=== PATIENT | male | born 1950 | race Caucasian/White ===

== ENCOUNTER 2016-11-01 09:54 | Inpatient (IN) | payer MEDICARE, OTHER ==
[~2016-11-01] VITALS: Ht 185.4 cm; Wt 102.3 kg
[~2016-11-01 09:54] MED LIST: LEVO25TA9 PO; TAMS0.4C32 PO
[2016-11-01] MEDS ORDERED: GLYC10.7 IH (10:16)
[2016-11-01] MEDS ORDERED: BUDE0.252 NEB (10:16)
[2016-11-01] MEDS ORDERED: ALBU0.424 IH (10:16)
[2016-11-01] MEDS ORDERED: MONT10TA21 PO (10:16)
[2016-11-01] MEDS ORDERED: BARIUM SULFATE 0.1% SUSPENSION 450 ML BOTTLE PO ONE (10:30)
[2016-11-01] MEDS ORDERED: SODIUM CHLORIDE 0.9% 1,000 ML IV ONE ×2 (10:30→11:45)
[2016-11-01] MEDS ORDERED: HYDROmorphone 2 MG/ML SYRINGE IVP ONE ×3 (10:30→23:42)
[2016-11-01] MEDS ORDERED: ONDANSETRON HCL 4 MG/2 ML VIAL IVP ONE ×2 (10:30→23:42)
[2016-11-01] MEDS ORDERED: HEPATITIS A VACCINE, INACTI [ADULT] 1,440 UNITS/ML VIAL IM ONE (10:45)
[2016-11-01 10:55] LABS: BASOPHILS # (AUTO) 0.06 K/uL (0.00-0.20); BASOPHILS % (AUTO) 0.4 % (0.0-2.0); EOSINOPHILS # (AUTO) 0.04 K/uL (0.00-0.70); EOSINOPHILS % (AUTO) 0.28 % (1.0-6.0); HEMATOCRIT 44.8 % (41-53); HEMOGLOBIN 15.2 g/dL (13.5-17.5); LYMPHOCYTES # (AUTO) 0.6 K/uL (1.0-4.8); LYMPHOCYTES % (AUTO) 4.9 % (22.0-44.0); MEAN CORPUSCULAR HEMOGLOBIN 31.8 pg (26.0-34.0); MEAN CORPUSCULAR VOLUME 93 fL (80-100); MONOCYTES # (AUTO) 0.7 K/uL (0.1-1.0); MONOCYTES % (AUTO) 5.5 % (2.0-9.0); NEUTROPHILS # (AUTO) 11.4 K/uL (1.8-7.7); PLATELET COUNT (AUTO) 242 K/uL (150-450); RED BLOOD CELL COUNT(AUTO) 4.79 MIL/uL (4.50-5.90); RED CELL DISTRIBUTION WIDTH 13.1 % (11.5-14.5); WHITE BLOOD COUNT (AUTO) 12.8 K/uL (4.5-11.0)
[2016-11-01 10:57] LABS: NEUTROPHILS % (AUTO) 88.9 % (40.0-70.0); RBC MORPHOLOGY COMMENT NORMAL RBC MORPH
[2016-11-01 11:01] LABS: ANION GAP 10 mmol/L (8-16); CALCIUM, TOTAL 9.5 mg/dL (8.8-10.5); CARBON DIOXIDE 28 mmol/L (22-29); CHLORIDE 101 mmol/L (98-107); CREATININE 1.16 mg/dL (0.60-1.30); GLOMERULAR FILTR. RATE CALC > 60 mL/min (>60); POTASSIUM 4.2 mmol/L (3.5-5.1); SODIUM SERUM 139 mmol/L (136-145); UREA NITROGEN, BLOOD 15 mg/dL (7-18)
[2016-11-01 11:03] LABS: APPEARANCE,URINE CLEAR (CLEAR); GLUCOSE, URINE (UA) NEGATIVE (NEGATIVE); KETONES,URINE 15 mg/dL (NEGATIVE); LEUKOCYTE ESTERASE ,URINE TRACE (NEGATIVE); OCCULT BLOOD,URINE NEGATIVE (NEGATIVE); PROTEIN,URINE POS 1+ (NEGATIVE)
[2016-11-01 11:07] LABS: ALANINE AMINOTRANSFERASE 34 U/L (12-78); ALBUMIN 3.6 g/dL (3.4-5.0); ASPARTATE AMINOTRANSFERASE 21 U/L (15-37); BILIRUBIN,TOTAL 0.9 mg/dL (0.1-1.0); TOTAL PROTEIN, SERUM 7.1 g/dL (6.4-8.2)
[2016-11-01 11:11] LABS: ADD UA MICROSCOPIC YES
[2016-11-01 11:15] LABS: RBC,URINE 0-2 /HPF (0-2); SQUAMOUS EPITHELIAL CELL,UR Few /LPF (None Seen); WBC,URINE 0-2 /HPF (0-5)
[2016-11-01] MEDS ORDERED: IOVERSOL 350 MG/ML 150 ML VIAL ONE (12:16)
[2016-11-01] MEDS ORDERED: SODIUM CHLORIDE 0.9% 100 ML ONE (12:16)
[2016-11-01] MEDS ORDERED: IPRATROPIUM BROMIDE 0.5 MG/2.5 ML NEB SOLUTION NEB ONE (12:45)
[2016-11-01] MEDS ORDERED: ALBUTEROL SULFATE 2.5 MG/0.5 ML NEB SOLUTION NEB ONE (12:45)
[2016-11-01] MEDS ORDERED: 0.9% SODIUM CHLORIDE 5 ML NEB SOLUTION NEB ONE ×2 (12:56→22:07)
[2016-11-01] MEDS ORDERED: 0.9% SODIUM CHLORIDE 10 ML SYRINGE IVP PRN (13:30)
[2016-11-01] MEDS ORDERED: HYDROmorphone 2 MG/ML SYRINGE IVP PRN ×5 (13:30→16:00)
[2016-11-01] MEDS ORDERED: ONDANSETRON HCL 4 MG/2 ML VIAL IVP PRN ×2 (13:30→13:45)
[2016-11-01] MEDS ORDERED: PIPERACILLIN/TAZO 3.375 GM/D5W 50 ML IV SCH ×2 (13:30→14:00)
[2016-11-01] MEDS ORDERED: BISACODYL 10 MG RECTAL RECTAL SUPPOSITORY PR PRN (13:45)
[2016-11-01] MEDS ORDERED: MAGNESIUM HYDROXIDE SUSPENSION 30 ML UDCUP PO PRN (13:45)
[2016-11-01] MEDS ORDERED: ACETAMINOPHEN 325 MG TABLET PO PRN (13:45)
[2016-11-01] MEDS: HEPARIN SODIUM,PORCINE 5,000 UNITS/ML VIAL SQ SCH ×2 (14:01→21:30)
[2016-11-01] MEDS ORDERED: RINGERS SOLUTION,LACTATED 0 ML IV ONE (14:32)
[2016-11-01] MEDS ORDERED: BUPIVACAINE 0.25%/EPI 1:200,000/PF 10 ML VIAL ONE (14:42)
[2016-11-01] MEDS ORDERED: RINGERS SOLUTION,LACTATED 1,000 ML IV ONE (14:43)
[2016-11-01] MEDS ORDERED: GUM MASTIC/STORAX/MSAL/ALCOHOL LIQUID 0.67 ML VIAL TP ONE (14:43)
[2016-11-01] MEDS ORDERED: SODIUM CHLORIDE 0.9% IRRIG BAG 1,000 ML IRRIG ONE (15:26)
[2016-11-01] MEDS ORDERED: CefoTEtan DISOD 2 GM/DEXTROSE 50 ML IV ONE (15:55)
[2016-11-01] MEDS ORDERED: ACETAMINOPHEN 1000 MG/ISO-OSM 100 ML IV ONE (15:56)
[2016-11-01] MEDS ORDERED: FentaNYL CITRATE-PF 100 MCG/2 ML VIAL IVP PRN (16:00)
[2016-11-01] MEDS ORDERED: MEPERIDINE-PF 25 MG/ML SYRINGE IVP PRN (16:00)
[2016-11-01] MEDS ORDERED: SODIUM CL IRRIG SOLN BAG 3,000 ML IRRIG ONE (16:43)
[2016-11-01] MEDS ORDERED: SODIUM CHLORIDE 0.9% 10 ML ONE (17:52)
[2016-11-01] MEDS ORDERED: HYDROmorphone 2 MG/ML SYRINGE ONE (18:09)
[2016-11-01] MEDS ORDERED: DiphenhydrAMINE HCL 25 MG CAPSULE PO PRN (18:45)
[2016-11-01] MEDS ORDERED: ONDANSETRON HCL 4 MG/2 ML VIAL IM PRN (18:45)
[2016-11-01] MEDS: IPRATROPIUM BROMIDE 0.5 MG/2.5 ML NEB SOLUTION NEB PRN ×2 (18:56→22:17)
[2016-11-01] MEDS: ALBUTEROL SULFATE 2.5 MG/0.5 ML NEB SOLUTION NEB PRN ×2 (18:56→22:18)
[2016-11-01] MEDS ORDERED: BACITRACIN 50,000 UNITS/VIAL ONE (19:26)
[2016-11-01 20:15] VITALS: BP 132/78
[2016-11-01] MEDS: FAMOTIDINE 20 MG TABLET PO SCH (21:30)
[2016-11-01] MEDS: OXYGEN THERAPY IH SCH (21:40)
[2016-11-01] MEDS: PIPERACILLIN SODIUM/TAZOBACTAM 4.5 GM in DEXTROSE 5%-WATER 100 ML IV SCH (21:41)
[2016-11-01] MEDS: ACETAMINOPHEN 1000 MG/ISO-OSM 100 ML IV SCH (23:01)
[2016-11-01] MEDS: HYDROmorphone 2 MG/ML SYRINGE IVP PRN (23:05)
[2016-11-01] MEDS: ZOLPIDEM TARTRATE 5 MG TABLET PO PRN (23:07)
[2016-11-01 23:09] VITALS: BP 128/66
[2016-11-01] MEDS ORDERED: NEOSTIGMINE METHYLSULFATE 1 MG/ML 10 ML VIAL IVP ONE (23:42)
[2016-11-01] MEDS ORDERED: PROPOFOL 1% 20 ML VIAL IVP ONE (23:42)
[2016-11-01] MEDS ORDERED: SUCCINYLCHOLINE CHLORIDE 20 MG/ML 10 ML VIAL IVP ONE (23:42)
[2016-11-01] MEDS ORDERED: MIDAZOLAM HCL 2 MG/2 ML VIAL IVP ONE (23:42)
[2016-11-01] MEDS ORDERED: LIDOCAINE HCL/PF 2% 5 ML VIAL IM ONE (23:42)
[2016-11-01] MEDS ORDERED: ROCURONIUM BROMIDE 10 MG/ML 5 ML VIAL IVP ONE (23:42)
[2016-11-01] MEDS ORDERED: KETOROLAC TROMETHAMINE 60 MG/2 ML VIAL IM ONE (23:42)
[2016-11-01] MEDS ORDERED: GLYCOPYRROLATE 0.2 MG/ML VIAL IM ONE (23:42)
[2016-11-01] MEDS ORDERED: FentaNYL CITRATE-PF 100 MCG/2 ML VIAL IVP ONE (23:42)
[2016-11-01] MEDS ORDERED: ALBUTEROL SULFATE HFA 90 MCG/PUFF 8 GM INHALER IH ONE (23:42)
[2016-11-01] MEDS ORDERED: DEXAMETHASONE SOD PHOS 4 MG/ML VIAL IVP ONE (23:42)
[2016-11-02] MEDS: PIPERACILLIN SODIUM/TAZOBACTAM 4.5 GM in DEXTROSE 5%-WATER 100 ML IV SCH ×3 (04:31→20:19)
[2016-11-02] MEDS: IPRATROPIUM BROMIDE 0.5 MG/2.5 ML NEB SOLUTION NEB PRN ×2 (05:28→10:51)
[2016-11-02] MEDS: ALBUTEROL SULFATE 2.5 MG/0.5 ML NEB SOLUTION NEB PRN ×3 (05:28→20:58)
[2016-11-02 05:29] VITALS: BP 132/72
[2016-11-02] MEDS: ACETAMINOPHEN 1000 MG/ISO-OSM 100 ML IV SCH ×3 (05:34→16:24)
[2016-11-02 06:38] LABS: BASOPHILS % (AUTO) 0.1 % (0.0-2.0); EOSINOPHILS % (AUTO) 0 % (1.0-6.0); HEMATOCRIT 40.9 % (41-53); HEMOGLOBIN 14.1 g/dL (13.5-17.5); LYMPHOCYTES # (AUTO) 0.6 K/uL (1.0-4.8); MEAN CORPUSCULAR HGB CONC 34.5 G/dL (31.0-37.0); MEAN CORPUSCULAR VOLUME 93 fL (80-100); MONOCYTES # (AUTO) 0.8 K/uL (0.1-1.0); MONOCYTES % (AUTO) 6.8 % (2.0-9.0); PLATELET COUNT (AUTO) 267 K/uL (150-450); RED CELL DISTRIBUTION WIDTH 13.4 % (11.5-14.5); WHITE BLOOD COUNT (AUTO) 12.5 K/uL (4.5-11.0)
[2016-11-02 06:41] LABS: NEUTROPHILS % (AUTO) 88.1 % (40.0-70.0)
[2016-11-02 07:08] LABS: CALCIUM, TOTAL 9.1 mg/dL (8.8-10.5); CHOL/HDL RATIO 4.2 (4.2-7.3); CREATININE 1.5 mg/dL (0.60-1.30); HEMOGLOBIN A1C 5.4 % (4.5-6.2); MAGNESIUM 2.1 mg/dL (1.80-2.40); POTASSIUM 4.6 mmol/L (3.5-5.1); THYROID STIMULATING HORMONE 0.97 uIU/mL (0.36-3.74)
[2016-11-02 07:26] VITALS: BP 109/57
[2016-11-02] MEDS: HYDROmorphone 2 MG/ML SYRINGE IVP PRN ×4 (07:56→20:19)
[2016-11-02] MEDS: LEVOTHYROXINE SODIUM 50 MCG TABLET PO SCH (07:56)
[2016-11-02] MEDS: KETOROLAC TROMETHAMINE 30 MG/ML VIAL IVP SCH ×2 (08:00)
[2016-11-02] MEDS: OXYGEN THERAPY IH SCH ×2 (08:00→20:00)
[2016-11-02] MEDS: MONTELUKAST SODIUM 10 MG TABLET PO SCH (08:12)
[2016-11-02] MEDS: HEPARIN SODIUM,PORCINE 5,000 UNITS/ML VIAL SQ SCH ×2 (08:13→08:19)
[2016-11-02] MEDS: PANTOPRAZOLE SODIUM 40 MG/VIAL IVP SCH (08:13)
[2016-11-02] MEDS: FAMOTIDINE 20 MG TABLET PO SCH ×2 (08:20→20:20)
[2016-11-02] MEDS ORDERED: 0.9% SODIUM CHLORIDE 5 ML NEB SOLUTION NEB ONE (10:51)
[2016-11-02] MEDS ORDERED: SODIUM CHLORIDE 0.9% 250 ML IV ONE ×2 (11:04→21:09)
[2016-11-02] MEDS: SIMETHICONE 80 MG CHEWABLE TABLET CHEW SCH ×3 (11:42→20:20)
[2016-11-02] MEDS: MINERAL OIL 30 ML UDCUP PO SCH ×2 (11:42→20:20)
[2016-11-02 11:48] VITALS: BP 111/58
[2016-11-02] MEDS: IBUPROFEN 200 MG TABLET PO SCH ×2 (12:28→17:41)
[2016-11-02 15:40] VITALS: BP 119/74
[2016-11-02 19:27] VITALS: BP 132/71
[2016-11-02] MEDS: BUDESONIDE 0.5 MG/2 ML NEB SOLUTION NEB SCH (20:58)
[2016-11-02] MEDS: ZOLPIDEM TARTRATE 5 MG TABLET PO PRN (22:11)
[2016-11-02 23:30] VITALS: BP 94/56
[2016-11-03] MEDS: HYDROmorphone 2 MG/ML SYRINGE IVP PRN ×6 (04:58→23:38)
[2016-11-03 05:01] VITALS: BP 130/84
[2016-11-03] MEDS: PIPERACILLIN SODIUM/TAZOBACTAM 4.5 GM in DEXTROSE 5%-WATER 100 ML IV SCH ×3 (05:02→20:09)
[2016-11-03] MEDS: IPRATROPIUM BROMIDE 0.5 MG/2.5 ML NEB SOLUTION NEB PRN ×3 (06:24→19:13)
[2016-11-03] MEDS: ALBUTEROL SULFATE 2.5 MG/0.5 ML NEB SOLUTION NEB PRN ×3 (06:24→19:13)
[2016-11-03] MEDS: LEVOTHYROXINE SODIUM 50 MCG TABLET PO SCH (06:28)
[2016-11-03] MEDS: IBUPROFEN 200 MG TABLET PO SCH ×5 (06:28→23:57)
[2016-11-03] MEDS: SIMETHICONE 80 MG CHEWABLE TABLET CHEW SCH ×4 (06:28→20:12)
[2016-11-03 07:03] LABS: BASOPHILS % (AUTO) 0.2 % (0.0-2.0); EOSINOPHILS % (AUTO) 0.4 % (1.0-6.0); HEMATOCRIT 36.9 % (41-53); HEMOGLOBIN 12.7 g/dL (13.5-17.5); LYMPHOCYTES # (AUTO) 0.7 K/uL (1.0-4.8); MEAN CORPUSCULAR HEMOGLOBIN 31.7 pg (26.0-34.0); MEAN CORPUSCULAR HGB CONC 34.5 G/dL (31.0-37.0); MEAN CORPUSCULAR VOLUME 92 fL (80-100); MONOCYTES # (AUTO) 0.6 K/uL (0.1-1.0); MONOCYTES % (AUTO) 9.7 % (2.0-9.0); NEUTROPHILS # (AUTO) 5.3 K/uL (1.8-7.7); NEUTROPHILS % (AUTO) 79.7 % (40.0-70.0); PLATELET COUNT (AUTO) 234 K/uL (150-450); RED BLOOD CELL COUNT(AUTO) 4.02 MIL/uL (4.50-5.90); RED CELL DISTRIBUTION WIDTH 13.4 % (11.5-14.5); WHITE BLOOD COUNT (AUTO) 6.6 K/uL (4.5-11.0)
[2016-11-03 07:15] LABS: ANION GAP 7 mmol/L (8-16); CALCIUM, TOTAL 8.7 mg/dL (8.8-10.5); CARBON DIOXIDE 27 mmol/L (22-29); CHLORIDE 103 mmol/L (98-107); CREATININE 1.17 mg/dL (0.60-1.30); GLOMERULAR FILTR. RATE CALC > 60 mL/min (>60); POTASSIUM 3.6 mmol/L (3.5-5.1); SODIUM SERUM 137 mmol/L (136-145); UREA NITROGEN, BLOOD 10 mg/dL (7-18)
[2016-11-03 07:48] VITALS: BP 145/72
[2016-11-03] MEDS: PANTOPRAZOLE SODIUM 40 MG/VIAL IVP SCH (07:51)
[2016-11-03] MEDS: FAMOTIDINE 20 MG TABLET PO SCH ×2 (07:51→20:06)
[2016-11-03] MEDS: MINERAL OIL 30 ML UDCUP PO SCH ×2 (07:51→20:12)
[2016-11-03] MEDS: MONTELUKAST SODIUM 10 MG TABLET PO SCH (07:51)
[2016-11-03] MEDS: OXYGEN THERAPY IH SCH (08:00)
[2016-11-03] MEDS: BUDESONIDE 0.5 MG/2 ML NEB SOLUTION NEB SCH ×2 (08:28→20:57)
[2016-11-03 11:56] VITALS: BP 150/87
[2016-11-03] MEDS ORDERED: MAGNESIUM CITRATE 300 ML ORAL SOLUTION PO PRN (13:00)
[2016-11-03 15:10] VITALS: BP 126/73
[2016-11-03 19:46] VITALS: BP 143/73
[2016-11-03 23:16] VITALS: BP 140/75
[2016-11-03] MEDS: ZOLPIDEM TARTRATE 5 MG TABLET PO PRN (23:36)
[2016-11-04 04:11] VITALS: BP 142/78
[2016-11-04] MEDS: HYDROmorphone 2 MG/ML SYRINGE IVP PRN ×3 (04:14→22:59)
[2016-11-04] MEDS: PIPERACILLIN SODIUM/TAZOBACTAM 4.5 GM in DEXTROSE 5%-WATER 100 ML IV SCH ×3 (04:17→20:08)
[2016-11-04] MEDS: IPRATROPIUM BROMIDE 0.5 MG/2.5 ML NEB SOLUTION NEB PRN ×4 (05:56→20:44)
[2016-11-04] MEDS: ALBUTEROL SULFATE 2.5 MG/0.5 ML NEB SOLUTION NEB PRN ×4 (05:56→20:44)
[2016-11-04] MEDS: SIMETHICONE 80 MG CHEWABLE TABLET CHEW SCH ×4 (07:11→20:10)
[2016-11-04] MEDS: IBUPROFEN 200 MG TABLET PO SCH ×4 (07:12→23:02)
[2016-11-04] MEDS: LEVOTHYROXINE SODIUM 50 MCG TABLET PO SCH (07:12)
[2016-11-04 07:32] VITALS: BP 138/80
[2016-11-04] MEDS: OXYGEN THERAPY IH SCH ×2 (08:00→20:10)
[2016-11-04] MEDS: MONTELUKAST SODIUM 10 MG TABLET PO SCH (08:13)
[2016-11-04] MEDS: FAMOTIDINE 20 MG TABLET PO SCH ×2 (08:13→20:07)
[2016-11-04] MEDS: MINERAL OIL 30 ML UDCUP PO SCH ×2 (08:13→20:08)
[2016-11-04] MEDS: PANTOPRAZOLE SODIUM 40 MG/VIAL IVP SCH (08:16)
[2016-11-04] MEDS ORDERED: 0.9% SODIUM CHLORIDE 5 ML NEB SOLUTION NEB ONE (08:59)
[2016-11-04] MEDS: BUDESONIDE 0.5 MG/2 ML NEB SOLUTION NEB SCH ×2 (09:01→20:44)
[2016-11-04] MEDS ORDERED: MAGNESIUM CITRATE 300 ML ORAL SOLUTION PO ONE (10:15)
[2016-11-04 11:43] VITALS: BP 143/81
[2016-11-04] MEDS ORDERED: SENNA/DOCUSATE SODIUM 187-50 MG TABLET PO PRN (14:45)
[2016-11-04] MEDS ORDERED: MINERAL OIL 133 ML ENEMA PR PRN (14:45)
[2016-11-04 16:24] VITALS: BP 134/72
[2016-11-04 19:53] VITALS: BP 152/78
[2016-11-04] MEDS: ZOLPIDEM TARTRATE 5 MG TABLET PO PRN (22:57)
[2016-11-04 23:05] VITALS: BP 132/75
[2016-11-05] MEDS: PIPERACILLIN SODIUM/TAZOBACTAM 4.5 GM in DEXTROSE 5%-WATER 100 ML IV SCH ×2 (04:21→11:58)
[2016-11-05 04:25] VITALS: BP 147/77
[2016-11-05] MEDS: HYDROmorphone 2 MG/ML SYRINGE IVP PRN (04:33)
[2016-11-05] MEDS: SIMETHICONE 80 MG CHEWABLE TABLET CHEW SCH ×2 (07:13→11:57)
[2016-11-05] MEDS: IBUPROFEN 200 MG TABLET PO SCH ×2 (07:14→11:57)
[2016-11-05] MEDS: LEVOTHYROXINE SODIUM 50 MCG TABLET PO SCH (07:14)
[2016-11-05 07:42] VITALS: BP 134/73
[2016-11-05] MEDS: OXYGEN THERAPY IH SCH (08:00)
[2016-11-05] MEDS: FAMOTIDINE 20 MG TABLET PO SCH (08:05)
[2016-11-05] MEDS: MINERAL OIL 30 ML UDCUP PO SCH (08:05)
[2016-11-05] MEDS: MONTELUKAST SODIUM 10 MG TABLET PO SCH (08:05)
[2016-11-05] MEDS: IPRATROPIUM BROMIDE 0.5 MG/2.5 ML NEB SOLUTION NEB PRN ×2 (08:26→13:58)
[2016-11-05] MEDS: BUDESONIDE 0.5 MG/2 ML NEB SOLUTION NEB SCH (08:26)
[2016-11-05] MEDS: ALBUTEROL SULFATE 2.5 MG/0.5 ML NEB SOLUTION NEB PRN ×2 (08:26→14:00)
[2016-11-05 11:18] VITALS: BP 140/67
[2016-11-05 12:16] LABS: CREATININE, URINE (mALB) 187.4 mg/dL (Not Estab.)
[2016-11-05] MEDS ORDERED: 0.9% SODIUM CHLORIDE 5 ML NEB SOLUTION NEB ONE (13:43)
[2016-11-05] MEDS ORDERED: PERCT PO (13:54)
[2016-11-05] MEDS ORDERED: AMOX1TAB16 PO (13:57)
== END 2016-11-05 15:30 | disposition home or self-care (01) | DRG 338 ==
LOC: EMS 09:57 → 6N 15:20 → EEVIPCON 15:20 → 6N 20:14
PROVIDERS: ADMIT Internal Medicine Geriatric Medicine; ATTEND Internal Medicine Geriatric Medicine
PROC: 0DTJ0ZZ Resection of Appendix, Open Approach (ICD-10-PCS; principal; 2016-11-01 15:30)
DX: K35.3 Acute appendicitis with localized peritonitis (principal); K65.1 Peritoneal abscess; N39.0 Urinary tract infection, site not specified; N17.9 Acute kidney failure, unspecified; K76.0 Fatty (change of) liver, not elsewhere classified; Z81.8 Family history of other mental and behavioral disorders; N40.1 Benign prostatic hyperplasia with lower urinary tract symptoms; R16.2 Hepatomegaly with splenomegaly, not elsewhere classified; J44.9 Chronic obstructive pulmonary disease, unspecified; E03.9 Hypothyroidism, unspecified; K59.00 Constipation, unspecified; K21.9 Gastro-esophageal reflux disease without esophagitis; K44.9 Diaphragmatic hernia without obstruction or gangrene; I70.0 Atherosclerosis of aorta; D50.0 Iron deficiency anemia secondary to blood loss (chronic); Z82.49 Family history of ischemic heart disease and other diseases of the circulatory system; Z87.891 Personal history of nicotine dependence
CPT/HCPCS: 74177; 82043; 82306; 82570; 82607; 82746; 83036; 83735; 84156; 84300; 84439; 84443; 84540; 86706; 87081; 87340; 87389; 88304; 90632; 93005; 93306; 94640; 96361; 96365; 96372; 96375; 99285; C9113; J0131; J0330; J1100; J1170; J1644; J1885; J2250; J2405; J2543; J2704; J3010; J3490; J3535; J7030; J7050; J7060; J7120

== ENCOUNTER → 2017-04-28 | Outpatient (CLI) | payer MEDICARE ==
[~2017-04-28] MED LIST changes: +ALBU1.252 IH; +AMOX1TAB16 PO; +BUDE0.252 NEB; +GLYC10.7 IH; +MONT10TA21 PO; +PERCT PO; -TAMS0.4C32 PO
== END | disposition home or self-care (01) ==
LOC: RADMN 15:47
PROVIDERS: ATTEND Internal Medicine
DX: J43.9 Emphysema, unspecified (principal); J42 Unspecified chronic bronchitis; K44.9 Diaphragmatic hernia without obstruction or gangrene; I25.10 Atherosclerotic heart disease of native coronary artery without angina pectoris; I70.0 Atherosclerosis of aorta
CPT/HCPCS: 71250

== ENCOUNTER → 2017-04-29 | Outpatient (CLI) | payer MEDICARE | END | disposition home or self-care (01) | LOC: RESP 11:01 | PROVIDERS: ATTEND Internal Medicine | DX: J44.1 Chronic obstructive pulmonary disease with (acute) exacerbation (principal) | CPT/HCPCS: 94010; 94726; 94727; 94729 ==

== ENCOUNTER → 2017-05-13 | Outpatient (CLI) | payer MEDICARE ==
[~2017-05-13] VITALS: Ht 185.4 cm; Wt 102.5 kg
[2017-05-13 13:48] VITALS: BP 126/66
== END | disposition home or self-care (01) ==
LOC: SRCNTR 13:08
PROVIDERS: ATTEND Internal Medicine
DX: J44.9 Chronic obstructive pulmonary disease, unspecified (principal); Z87.891 Personal history of nicotine dependence
CPT/HCPCS: G0463

== ENCOUNTER → 2017-05-16 | Outpatient (CLI) | payer MEDICARE ==
[2017-05-16 19:56] LABS: BASOPHILS % (AUTO) 0.4 % (0.0-2.0); EOSINOPHILS % (AUTO) 1.7 % (1.0-6.0); HEMATOCRIT 45.2 % (41-53); HEMOGLOBIN 15.6 g/dL (13.5-17.5); LYMPHOCYTES # (AUTO) 1.4 K/uL (1.0-4.8); LYMPHOCYTES % (AUTO) 11.9 % (22.0-44.0); MEAN CORPUSCULAR HEMOGLOBIN 31.6 pg (26.0-34.0); MEAN CORPUSCULAR HGB CONC 34.6 G/dL (31.0-37.0); MEAN CORPUSCULAR VOLUME 91 fL (80-100); MONOCYTES # (AUTO) 0.7 K/uL (0.1-1.0); MONOCYTES % (AUTO) 6.1 % (2.0-9.0); NEUTROPHILS # (AUTO) 9.2 K/uL (1.8-7.7); NEUTROPHILS % (AUTO) 79.9 % (40.0-70.0); PLATELET COUNT (AUTO) 239 K/uL (150-450); RED BLOOD CELL COUNT(AUTO) 4.95 MIL/uL (4.50-5.90); RED CELL DISTRIBUTION WIDTH 13.6 % (11.5-14.5)
[2017-05-16 20:14] LABS: ALANINE AMINOTRANSFERASE 55 U/L (12-78); ALBUMIN 4.1 g/dL (3.4-5.0); ALKALINE PHOSPHATASE 76 U/L (46-116); ANION GAP 11 mmol/L (8-16); ASPARTATE AMINOTRANSFERASE 34 U/L (15-37); CALCIUM, TOTAL 9.2 mg/dL (8.8-10.5); CARBON DIOXIDE 27 mmol/L (22-29); CHLORIDE 103 mmol/L (98-107); CREATININE 1.03 mg/dL (0.60-1.30); GLOMERULAR FILTR. RATE CALC > 60 mL/min (>60); GLUCOSE,RANDOM 96 mg/dL (70-110); POTASSIUM 4.5 mmol/L (3.5-5.1); SODIUM SERUM 141 mmol/L (136-145); TOTAL PROTEIN, SERUM 7.6 g/dL (6.4-8.2); UREA NITROGEN, BLOOD 21 mg/dL (7-18)
== END | disposition home or self-care (01) ==
LOC: LABMN 19:40
PROVIDERS: ATTEND Internal Medicine
DX: J44.9 Chronic obstructive pulmonary disease, unspecified (principal)

== ENCOUNTER → 2017-08-25 | Outpatient (CLI) | payer MEDICARE ==
[2017-08-29 15:15] LABS: HEMATOCRIT 44.2 % (41-53); HEMOGLOBIN 15.4 g/dL (13.5-17.5); MEAN CORPUSCULAR HEMOGLOBIN 31.6 pg (26.0-34.0); MEAN CORPUSCULAR HGB CONC 34.9 G/dL (31.0-37.0); MEAN CORPUSCULAR VOLUME 91 fL (80-100); RED BLOOD CELL COUNT(AUTO) 4.88 MIL/uL (4.50-5.90)
[2017-08-29 15:16] LABS: EOSINOPHILS % (AUTO) 2.8 % (1.0-6.0); LYMPHOCYTES % (AUTO) 15.1 % (22.0-44.0); NEUTROPHILS % (AUTO) 72.7 % (40.0-70.0); PLATELET COUNT (AUTO) 206 K/uL (150-450)
[2017-08-29 15:17] LABS: BASOPHILS % (AUTO) 0.4 % (0.0-2.0); LYMPHOCYTES # (AUTO) 1.1 K/uL (1.0-4.8); MONOCYTES # (AUTO) 0.7 K/uL (0.1-1.0); NEUTROPHILS # (AUTO) 5.3 K/uL (1.8-7.7)
[2017-08-29 15:56] LABS: POTASSIUM 4.8 mmol/L (3.5-5.1)
[2017-08-29 15:57] LABS: ALBUMIN 3.7 g/dL (3.4-5.0); BILIRUBIN,TOTAL 0.8 mg/dL (0.1-1.0); CALCIUM, TOTAL 9.2 mg/dL (8.8-10.5); CREATININE 1.24 mg/dL (0.60-1.30); TOTAL PROTEIN, SERUM 7.8 g/dL (6.4-8.2)
== END | disposition home or self-care (01) ==
LOC: LABMN 11:00
PROVIDERS: ATTEND Internal Medicine
DX: J45.909 Unspecified asthma, uncomplicated (principal)

== ENCOUNTER 2017-09-03 07:32 | Inpatient (IN) | payer MEDICARE ==
[~2017-09-03] VITALS: Ht 185.4 cm; Wt 100.4 kg
[2017-09-03] MEDS ORDERED: ASPIRIN 81 MG CHEWABLE TABLET PO ONE (08:00)
[2017-09-03] MEDS ORDERED: CLOPIDOGREL BISULFATE 75 MG TABLET PO ONE (08:00)
[2017-09-03 08:04] LABS: BASOPHILS % (AUTO) 0.5 % (0.0-2.0); EOSINOPHILS % (AUTO) 2.8 % (1.0-6.0); HEMOGLOBIN 15.5 g/dL (13.5-17.5); LYMPHOCYTES # (AUTO) 1.3 K/uL (1.0-4.8); LYMPHOCYTES % (AUTO) 19.1 % (22.0-44.0); MEAN CORPUSCULAR HEMOGLOBIN 31.8 pg (26.0-34.0); MEAN CORPUSCULAR HGB CONC 35.7 G/dL (31.0-37.0); MEAN CORPUSCULAR VOLUME 89 fL (80-100); MONOCYTES # (AUTO) 0.6 K/uL (0.1-1.0); MONOCYTES % (AUTO) 8.5 % (2.0-9.0); NEUTROPHILS # (AUTO) 4.7 K/uL (1.8-7.7); NEUTROPHILS % (AUTO) 69.1 % (40.0-70.0); PLATELET COUNT (AUTO) 305 K/uL (150-450); RED BLOOD CELL COUNT(AUTO) 4.87 MIL/uL (4.50-5.90); RED CELL DISTRIBUTION WIDTH 14.2 % (11.5-14.5)
[2017-09-03 08:05] LABS: HEMATOCRIT 44.3 % (41-53)
[2017-09-03 08:12] LABS: PROTHROMBIN TIME 10.8 SEC (9.4-11.6)
[2017-09-03] MEDS ORDERED: SODIUM CHLORIDE 0.9% 1,000 ML IV ONE (08:15)
[2017-09-03] MEDS ORDERED: LORazepam 2 MG/ML VIAL IVP ONE (08:15)
[2017-09-03 08:17] LABS: ANION GAP 7 mmol/L (8-16); CALCIUM, TOTAL 9.1 mg/dL (8.8-10.5); CARBON DIOXIDE 29 mmol/L (22-29); CHLORIDE 104 mmol/L (98-107); CREATININE 1.24 mg/dL (0.60-1.30); GLOMERULAR FILTR. RATE CALC 58 mL/min (>60); GLUCOSE,RANDOM 107 mg/dL (70-110); POTASSIUM 3.8 mmol/L (3.5-5.1); SODIUM SERUM 140 mmol/L (136-145); UREA NITROGEN, BLOOD 21 mg/dL (7-18)
[2017-09-03 08:24] LABS: TROPONIN I < 0.02 ng/mL (0.00-0.05)
[2017-09-03] MEDS ORDERED: ALBUTEROL SULFATE 2.5 MG/0.5 ML NEB SOLUTION NEB PRN (08:30)
[2017-09-03] MEDS ORDERED: MAGNESIUM HYDROXIDE SUSPENSION 30 ML UDCUP PO PRN (08:30)
[2017-09-03] MEDS ORDERED: DEXTROSE 50%-WATER 25 GM/50 ML SYRINGE IVP PRN (08:30)
[2017-09-03] MEDS ORDERED: ZOLPIDEM TARTRATE 5 MG TABLET PO PRN (08:30)
[2017-09-03] MEDS ORDERED: ONDANSETRON HCL 4 MG/2 ML VIAL IVP PRN ×2 (08:30)
[2017-09-03] MEDS ORDERED: INSULIN LISPRO 100 UNITS/ML SQ PRN (08:30)
[2017-09-03] MEDS ORDERED: IPRATROPIUM BROMIDE 0.5 MG/2.5 ML NEB SOLUTION NEB PRN (08:30)
[2017-09-03] MEDS ORDERED: BISACODYL 10 MG RECTAL RECTAL SUPPOSITORY PR PRN (08:30)
[2017-09-03] MEDS ORDERED: ACETAMINOPHEN 325 MG TABLET PO PRN (08:30)
[2017-09-03 08:32] LABS: AMMONIA < 10 umol/L (11-32)
[2017-09-03] MEDS ORDERED: GADOBUTROL 1 MMOL/ML 10 ML VIAL IVP ONE (08:34)
[2017-09-03 08:42] LABS: ALANINE AMINOTRANSFERASE 41 U/L (12-78); ALBUMIN 3.8 g/dL (3.4-5.0); ALKALINE PHOSPHATASE 82 U/L (46-116); ASPARTATE AMINOTRANSFERASE 28 U/L (15-37); CREATINE KINASE MB 1.2 ng/mL (0-5); CREATINE KINASE, TOTAL 93 U/L (39-308); TOTAL PROTEIN, SERUM 7.3 g/dL (6.4-8.2)
[2017-09-03] MEDS ORDERED: MetFORMIN HCL 500 MG TABLET PO SCH (09:00)
[2017-09-03] MEDS ORDERED: ASPIRIN 81 MG EC TABLET PO SCH (09:00)
[2017-09-03] MEDS: CLOPIDOGREL BISULFATE 75 MG TABLET PO SCH (09:00)
[2017-09-03] MEDS: MONTELUKAST SODIUM 10 MG TABLET PO SCH (10:13)
[2017-09-03] MEDS: PANTOPRAZOLE SODIUM 40 MG DR TABLET PO SCH (10:13)
[2017-09-03 10:59] VITALS: BP 140/76
[2017-09-03 13:53] LABS: CHOL/HDL RATIO 4.9 (4.2-7.3); THYROID STIMULATING HORMONE 2.34 uIU/mL (0.36-3.74)
[2017-09-03 13:59] LABS: HEMOGLOBIN A1C 5.7 % (4.5-6.2)
[2017-09-03 14:12] LABS: FOLATE SERUM 23.9 ng/mL (5.4-)
[2017-09-03 16:01] VITALS: BP 139/84
[2017-09-03 19:43] VITALS: BP 135/81
[2017-09-03] MEDS ORDERED: TAMSULOSIN HCL 0.4 MG CAPSULE PO SCH (21:00)
[2017-09-03] MEDS ORDERED: FINASTERIDE 5 MG TABLET PO SCH (21:00)
[2017-09-03] MEDS ORDERED: ATORVASTATIN CALCIUM 20 MG TABLET PO SCH ×2 (21:00)
[2017-09-04 00:07] VITALS: BP_SYST 13; BP_SYST 131; BP_DIAS 78
[2017-09-04 05:21] VITALS: BP 101/58
[2017-09-04] MEDS ORDERED: LEVOTHYROXINE SODIUM 50 MCG TABLET PO SCH (06:30)
[2017-09-04 06:47] LABS: BASOPHILS % (AUTO) 0.2 % (0.0-2.0); HEMATOCRIT 38.8 % (41-53); HEMOGLOBIN 14.3 g/dL (13.5-17.5); LYMPHOCYTES # (AUTO) 1.1 K/uL (1.0-4.8); LYMPHOCYTES % (AUTO) 16.9 % (22.0-44.0); MEAN CORPUSCULAR HEMOGLOBIN 32.3 pg (26.0-34.0); MEAN CORPUSCULAR HGB CONC 36.8 G/dL (31.0-37.0); MEAN CORPUSCULAR VOLUME 88 fL (80-100); MONOCYTES # (AUTO) 0.6 K/uL (0.1-1.0); MONOCYTES % (AUTO) 8.7 % (2.0-9.0); NEUTROPHILS # (AUTO) 4.6 K/uL (1.8-7.7); NEUTROPHILS % (AUTO) 71.2 % (40.0-70.0); PLATELET COUNT (AUTO) 287 K/uL (150-450); RED BLOOD CELL COUNT(AUTO) 4.42 MIL/uL (4.50-5.90); RED CELL DISTRIBUTION WIDTH 13.9 % (11.5-14.5)
[2017-09-04 06:51] LABS: HEMOGLOBIN A1C 5.9 % (4.5-6.2)
[2017-09-04 07:35] LABS: ALANINE AMINOTRANSFERASE 34 U/L (12-78); ALBUMIN 3.2 g/dL (3.4-5.0); ALKALINE PHOSPHATASE 72 U/L (46-116); ANION GAP 12 mmol/L (8-16); ASPARTATE AMINOTRANSFERASE 25 U/L (15-37); CALCIUM, TOTAL 8.3 mg/dL (8.8-10.5); CARBON DIOXIDE 21 mmol/L (22-29); CHLORIDE 105 mmol/L (98-107); CHOL/HDL RATIO 5.3 (4.2-7.3); CHOLESTEROL 165 mg/dL (131-200); CREATINE KINASE MB 0.9 ng/mL (0-5); CREATINE KINASE, TOTAL 77 U/L (39-308); CREATININE 1.02 mg/dL (0.60-1.30); FREE T4 (FREE THYROXINE) 0.95 ng/dL (0.76-1.46); GLOMERULAR FILTR. RATE CALC > 60 mL/min (>60); GLUCOSE,RANDOM 95 mg/dL (70-110); HDL CHOLESTEROL 31 mg/dL (40-60); LDL CHOL (CALC.) 109 mg/dL (0-130); POTASSIUM 3.5 mmol/L (3.5-5.1); SODIUM SERUM 138 mmol/L (136-145); THYROID STIMULATING HORMONE 5.02 uIU/mL (0.36-3.74); TOTAL PROTEIN, SERUM 6.5 g/dL (6.4-8.2); TRIGLYCERIDES 123 mg/dL (15-150); UREA NITROGEN, BLOOD 16 mg/dL (7-18)
[2017-09-04 07:44] VITALS: BP 122/67
[2017-09-04] MEDS: MONTELUKAST SODIUM 10 MG TABLET PO SCH (08:56)
[2017-09-04] MEDS: CLOPIDOGREL BISULFATE 75 MG TABLET PO SCH (08:56)
[2017-09-04] MEDS: PANTOPRAZOLE SODIUM 40 MG DR TABLET PO SCH (08:56)
[2017-09-04] MEDS ORDERED: ASPIRIN 81 MG EC TABLET PO SCH (09:00)
[2017-09-04] MEDS ORDERED: ASPI-556 PO (11:56)
[2017-09-04] MEDS ORDERED: ATOR40TA71 PO (11:57)
[2017-09-04] MEDS ORDERED: CLOP75 PO (11:57)
[2017-09-04] MEDS ORDERED: FINA5TAB41 PO (11:58)
[2017-09-04] MEDS ORDERED: TAMS-1 PO (11:59)
[2017-09-05 17:13] LABS: GLUCOMETER DEV NAME(LOC) 5N 2S; GLUCOSE,POINT OF CARE 111 MG/DL (70-110)
[2017-09-05 17:13] LABS: GLUCOMETER DEV NAME(LOC) 5N 2S; GLUCOSE,POINT OF CARE 76 MG/DL (70-110)
[2017-09-05 17:13] LABS: GLUCOMETER DEV NAME(LOC) 5N 2S; GLUCOSE,POINT OF CARE 97 MG/DL (70-110)
== END 2017-09-04 12:15 | disposition home or self-care (01) | DRG 66 ==
LOC: EMS 07:33 → EEVIPCON 07:33 → 5N 10:35
PROVIDERS: ADMIT Internal Medicine Geriatric Medicine; ATTEND Internal Medicine Geriatric Medicine
DX: I63.512 Cerebral infarction due to unspecified occlusion or stenosis of left middle cerebral artery (principal); J44.9 Chronic obstructive pulmonary disease, unspecified; E03.9 Hypothyroidism, unspecified; E11.9 Type 2 diabetes mellitus without complications; E78.5 Hyperlipidemia, unspecified; N40.0 Benign prostatic hyperplasia without lower urinary tract symptoms; R48.8 Other symbolic dysfunctions; F68.8 Other specified disorders of adult personality and behavior; I10 Essential (primary) hypertension; Z79.84 Long term (current) use of oral hypoglycemic drugs; Z79.82 Long term (current) use of aspirin; Z79.899 Other long term (current) drug therapy; Z85.828 Personal history of other malignant neoplasm of skin; Z87.891 Personal history of nicotine dependence; Z86.73 Personal history of transient ischemic attack (TIA), and cerebral infarction without residual deficits; Z82.0 Family history of epilepsy and other diseases of the nervous system; Z82.49 Family history of ischemic heart disease and other diseases of the circulatory system
CPT/HCPCS: 70450; 70544; 70553; 82306; 82607; 82746; 83036; 83735; 84439; 84443; 86038; 86592; 92523; 93005; 93306; 93880; 96374; 97161; 97165; 97530; 99291; A9585; J2060; J7030

== ENCOUNTER → 2017-10-15 | Outpatient (CLI) | payer MEDICARE ==
[~2017-10-15] VITALS: Ht 185.4 cm; Wt 96.5 kg
[~2017-10-15] MED LIST changes: -AMOX1TAB16 PO; +ASPI-556 PO; +ATOR40TA71 PO; -BUDE0.252 NEB; +CLOP75 PO; +FINA5TAB41 PO; -GLYC10.7 IH; -PERCT PO; +TAMS-1 PO
[2017-10-15 12:32] VITALS: BP 124/68
== END | disposition home or self-care (01) ==
LOC: SRCNTR 12:22
PROVIDERS: ATTEND Internal Medicine
DX: J44.9 Chronic obstructive pulmonary disease, unspecified (principal); E66.9 Obesity, unspecified; E03.9 Hypothyroidism, unspecified; Z86.73 Personal history of transient ischemic attack (TIA), and cerebral infarction without residual deficits; Z87.891 Personal history of nicotine dependence
CPT/HCPCS: G0463

== ENCOUNTER → 2017-12-29 | Outpatient (CLI) | payer MEDICARE ==
[2017-12-29 15:06] LABS: HEMATOCRIT 42.1 % (41-53); HEMOGLOBIN 14.6 g/dL (13.5-17.5); MEAN CORPUSCULAR HEMOGLOBIN 30.7 pg (26.0-34.0); MEAN CORPUSCULAR HGB CONC 34.7 G/dL (31.0-37.0); MEAN CORPUSCULAR VOLUME 89 fL (80-100); PLATELET COUNT (AUTO) 236 K/uL (150-450); RED BLOOD CELL COUNT(AUTO) 4.76 MIL/uL (4.50-5.90); RED CELL DISTRIBUTION WIDTH 13.9 % (11.5-14.5)
[2017-12-29 15:07] LABS: BASOPHILS % (AUTO) 0.2 % (0.0-2.0); EOSINOPHILS % (AUTO) 2.9 % (1.0-6.0); LYMPHOCYTES # (AUTO) 1.4 K/uL (1.0-4.8); LYMPHOCYTES % (AUTO) 22.5 % (22.0-44.0); MONOCYTES # (AUTO) 0.5 K/uL (0.1-1.0); MONOCYTES % (AUTO) 8.2 % (2.0-9.0); NEUTROPHILS % (AUTO) 66.2 % (40.0-70.0)
== END | disposition home or self-care (01) ==
LOC: LABMN 14:17
PROVIDERS: ATTEND Internal Medicine
DX: J44.9 Chronic obstructive pulmonary disease, unspecified (principal); N40.0 Benign prostatic hyperplasia without lower urinary tract symptoms; E03.9 Hypothyroidism, unspecified

== ENCOUNTER → 2018-12-18 | Outpatient (CLI) | payer MEDICARE ==
[~2018-12-18] MED LIST changes: -CLOP75 PO; +CLOP75TA3 PO; +IOVERSOL 350 MG/ML 150 ML VIAL ONE; +SODIUM CHLORIDE 0.9% 100 ML ONE
== END | disposition home or self-care (01) ==
LOC: RADMN 09:14
PROVIDERS: ATTEND Surgery
DX: K76.0 Fatty (change of) liver, not elsewhere classified (principal); R16.1 Splenomegaly, not elsewhere classified; N40.0 Benign prostatic hyperplasia without lower urinary tract symptoms; K40.20 Bilateral inguinal hernia, without obstruction or gangrene, not specified as recurrent; K57.30 Diverticulosis of large intestine without perforation or abscess without bleeding; N28.1 Cyst of kidney, acquired; M46.04 Spinal enthesopathy, thoracic region; K43.2 Incisional hernia without obstruction or gangrene; I70.0 Atherosclerosis of aorta
CPT/HCPCS: 74177; J7050; Q9967

== ENCOUNTER 2020-11-18 08:01 | Inpatient (IN) | payer MEDICARE ==
[~2020-11-18] VITALS: Ht 185.4 cm; Wt 100.0 kg
[~2020-11-18 08:01] MED LIST changes: -CLOP75TA3 PO; +CLOP75TA60 PO; -IOVERSOL 350 MG/ML 150 ML VIAL ONE; +MONT-35 PO; -MONT10TA21 PO; -SODIUM CHLORIDE 0.9% 100 ML ONE
[2020-11-18] MEDS ORDERED: ACETAMINOPHEN 500 MG TABLET PO ONE (08:15)
[2020-11-18] MEDS ORDERED: DEXAMETHASONE SOD PHOS 4 MG/ML VIAL IVP ONE (08:15)
[2020-11-18] MEDS ORDERED: REMDESIVIR 200 MG in SODIUM CHLORIDE 0.9% 250 ML IV ONE (09:30)
[2020-11-18 10:10] LABS: BASOPHILS % (AUTO) 0.1 % (0.0-2.0); EOSINOPHILS % (AUTO) 0 % (1.0-6.0); HEMATOCRIT 39.9 % (41-53); LYMPHOCYTES # (AUTO) 0.2 K/uL (1.0-4.8); LYMPHOCYTES % (AUTO) 3.7 % (22.0-44.0); MEAN CORPUSCULAR HEMOGLOBIN 31.2 pg (26.0-34.0); MEAN CORPUSCULAR HGB CONC 35.1 G/dL (31.0-37.0); MEAN CORPUSCULAR VOLUME 89 fL (80-100); MONOCYTES # (AUTO) 0.3 K/uL (0.1-1.0); MONOCYTES % (AUTO) 5.7 % (2.0-9.0); NEUTROPHILS # (AUTO) 5.5 K/uL (1.8-7.7); PLATELET COUNT (AUTO) 137 K/uL (150-450); RED BLOOD CELL COUNT(AUTO) 4.49 MIL/uL (4.50-5.90); RED CELL DISTRIBUTION WIDTH 13.3 % (11.5-14.5)
[2020-11-18 10:17] LABS: NEUTROPHILS % (AUTO) 90.5 % (40.0-70.0)
[2020-11-18 10:24] LABS: ANION GAP 12 mmol/L (8-16); CALCIUM, TOTAL 8.1 mg/dL (8.8-10.5); CARBON DIOXIDE 23 mmol/L (22-29); CHLORIDE 100 mmol/L (98-107); CREATININE 1.05 mg/dL (0.60-1.30); GLOMERULAR FILTR. RATE CALC > 60 mL/min (>60); GLUCOSE,RANDOM 124 mg/dL (70-110); POTASSIUM 3.7 mmol/L (3.5-5.1); SODIUM SERUM 135 mmol/L (136-145); UREA NITROGEN, BLOOD 16 mg/dL (7-18)
[2020-11-18 10:28] LABS: D-DIMER 0.62 mg/L FEU (0.00-0.50); INR 1.1 (0.9-1.1); LACTIC ACID 0.9 mmol/L (0.4-2.0); PROTHROMBIN TIME 11.2 SEC (9.4-11.6)
[2020-11-18] MEDS ORDERED: TOCILIZUMAB 800 MG in SODIUM CHLORIDE 0.9% 60 ML IV ONE (10:30)
[2020-11-18 10:35] LABS: B-TYPE NATRIURETIC PEPTIDE 90 pg/mL (0-100)
[2020-11-18] MEDS ORDERED: MAGNESIUM HYDROXIDE SUSPENSION 30 ML UDCUP PO PRN (10:45)
[2020-11-18] MEDS ORDERED: ONDANSETRON HCL 4 MG/2 ML VIAL IVP PRN (10:45)
[2020-11-18] MEDS ORDERED: BISACODYL 10 MG RECTAL RECTAL SUPPOSITORY PR PRN (10:45)
[2020-11-18 10:49] LABS: ALANINE AMINOTRANSFERASE 33 U/L (12-78); ALBUMIN 3.1 g/dL (3.4-5.0); ALKALINE PHOSPHATASE 50 U/L (46-116); ASPARTATE AMINOTRANSFERASE 45 U/L (15-37); BILIRUBIN,TOTAL 0.7 mg/dL (0.1-1.0); C-REACTIVE PROTEIN QUANT 8.64 mg/dL (0.00-0.30); CREATINE KINASE, TOTAL ONLY 410 U/L (39-308); FERRITIN 801 ng/mL (26-388); PHOSPHORUS 2.8 mg/dL (2.5-4.9); TOTAL PROTEIN, SERUM 7.2 g/dL (6.4-8.2)
[2020-11-18] MEDS ORDERED: ALBUTEROL SULFATE HFA 90 MCG/PUFF 8 GM INHALER IH PRN (11:00)
[2020-11-18] MEDS: ENOXAPARIN SODIUM 60 MG/0.6 ML PF SYRINGE SQ SCH ×2 (11:36→20:05)
[2020-11-18 15:30] VITALS: BP 112/72
[2020-11-18] MEDS: FLUTICASONE/VILANTEROL 200-25 MCG/INH INHALER [14] IH SCH (18:52)
[2020-11-18 19:47] VITALS: BP 118/64
[2020-11-18] MEDS: TAMSULOSIN HCL 0.4 MG CAPSULE PO SCH (20:04)
[2020-11-18] MEDS: FINASTERIDE 5 MG TABLET PO SCH (20:05)
[2020-11-18] MEDS: ATORVASTATIN CALCIUM 40 MG TABLET PO SCH (20:05)
[2020-11-18] MEDS: CHOLECALCIFEROL (VIT D3) 2,000 UNITS [50 MCG] TABLET PO SCH (20:05)
[2020-11-19 08:54] VITALS: BP 120/66
[2020-11-19] MEDS: ASPIRIN 81 MG DR TABLET PO SCH (08:54)
[2020-11-19] MEDS: PANTOPRAZOLE SODIUM 40 MG DR TABLET PO SCH (08:55)
[2020-11-19] MEDS: LEVOTHYROXINE SODIUM 50 MCG TABLET PO SCH (08:55)
[2020-11-19] MEDS: CHOLECALCIFEROL (VIT D3) 2,000 UNITS [50 MCG] TABLET PO SCH (08:55)
[2020-11-19] MEDS: MONTELUKAST SODIUM 10 MG TABLET PO SCH (08:55)
[2020-11-19] MEDS: ENOXAPARIN SODIUM 60 MG/0.6 ML PF SYRINGE SQ SCH ×2 (08:56→20:24)
[2020-11-19] MEDS: DEXAMETHASONE SOD PHOS 4 MG/ML VIAL IVP SCH (08:56)
[2020-11-19] MEDS ORDERED: ENOXAPARIN SODIUM 40 MG/0.4 ML PF SYRINGE SQ SCH (09:00)
[2020-11-19] MEDS: FLUTICASONE/VILANTEROL 200-25 MCG/INH INHALER [14] IH SCH (09:03)
[2020-11-19] MEDS: REMDESIVIR 100 MG in SODIUM CHLORIDE 0.9% 250 ML IV SCH (10:29)
[2020-11-19] MEDS ORDERED: PROMETH/PHENYLEPHRINE/CODEINE 5 ML ORAL.SYG PO PRN (11:45)
[2020-11-19 15:08] VITALS: BP 104/62
[2020-11-19] MEDS: FINASTERIDE 5 MG TABLET PO SCH (20:24)
[2020-11-19] MEDS: TAMSULOSIN HCL 0.4 MG CAPSULE PO SCH (20:24)
[2020-11-19] MEDS: ATORVASTATIN CALCIUM 40 MG TABLET PO SCH (20:25)
[2020-11-19 20:30] VITALS: BP 104/67
[2020-11-20] MEDS: CHOLECALCIFEROL (VIT D3) 2,000 UNITS [50 MCG] TABLET PO SCH (09:47)
[2020-11-20] MEDS: LEVOTHYROXINE SODIUM 50 MCG TABLET PO SCH (09:47)
[2020-11-20] MEDS: MONTELUKAST SODIUM 10 MG TABLET PO SCH (09:47)
[2020-11-20] MEDS: PANTOPRAZOLE SODIUM 40 MG DR TABLET PO SCH (09:47)
[2020-11-20] MEDS: ASPIRIN 81 MG DR TABLET PO SCH (09:47)
[2020-11-20] MEDS: DEXAMETHASONE SOD PHOS 4 MG/ML VIAL IVP SCH (09:57)
[2020-11-20] MEDS: FLUTICASONE/VILANTEROL 200-25 MCG/INH INHALER [14] IH SCH (10:10)
[2020-11-20 10:16] VITALS: BP 128/69
[2020-11-20] MEDS: ENOXAPARIN SODIUM 60 MG/0.6 ML PF SYRINGE SQ SCH ×2 (12:11→20:21)
[2020-11-20] MEDS: REMDESIVIR 100 MG in SODIUM CHLORIDE 0.9% 250 ML IV SCH (12:11)
[2020-11-20 13:06] VITALS: BP 118/67
[2020-11-20 16:00] VITALS: BP 126/70
[2020-11-20] MEDS: ATORVASTATIN CALCIUM 40 MG TABLET PO SCH (20:20)
[2020-11-20] MEDS: TAMSULOSIN HCL 0.4 MG CAPSULE PO SCH (20:20)
[2020-11-20] MEDS: FINASTERIDE 5 MG TABLET PO SCH (20:20)
[2020-11-20 20:32] VITALS: BP 119/68
[2020-11-21] MEDS: LEVOTHYROXINE SODIUM 50 MCG TABLET PO SCH (08:27)
[2020-11-21] MEDS: FLUTICASONE/VILANTEROL 200-25 MCG/INH INHALER [14] IH SCH (08:27)
[2020-11-21] MEDS: ASPIRIN 81 MG DR TABLET PO SCH (08:27)
[2020-11-21] MEDS: PANTOPRAZOLE SODIUM 40 MG DR TABLET PO SCH (08:27)
[2020-11-21] MEDS: DEXAMETHASONE SOD PHOS 4 MG/ML VIAL IVP SCH (08:27)
[2020-11-21] MEDS: CHOLECALCIFEROL (VIT D3) 2,000 UNITS [50 MCG] TABLET PO SCH (08:28)
[2020-11-21] MEDS: ENOXAPARIN SODIUM 60 MG/0.6 ML PF SYRINGE SQ SCH ×2 (08:28→20:37)
[2020-11-21] MEDS: MONTELUKAST SODIUM 10 MG TABLET PO SCH (08:28)
[2020-11-21 08:56] VITALS: BP 144/79
[2020-11-21 12:31] VITALS: BP 138/82
[2020-11-21] MEDS: REMDESIVIR 100 MG in SODIUM CHLORIDE 0.9% 250 ML IV SCH (12:50)
[2020-11-21 14:56] LABS: BASOPHILS % (AUTO) 0.1 % (0.0-2.0); EOSINOPHILS % (AUTO) 1.3 % (1.0-6.0); HEMATOCRIT 41.5 % (41-53); HEMOGLOBIN 14.1 g/dL (13.5-17.5); LYMPHOCYTES # (AUTO) 0.5 K/uL (1.0-4.8); LYMPHOCYTES % (AUTO) 10.3 % (22.0-44.0); MEAN CORPUSCULAR HEMOGLOBIN 30.7 pg (26.0-34.0); MEAN CORPUSCULAR VOLUME 91 fL (80-100); MONOCYTES # (AUTO) 0.2 K/uL (0.1-1.0); MONOCYTES % (AUTO) 3.5 % (2.0-9.0); NEUTROPHILS # (AUTO) 4.2 K/uL (1.8-7.7); NEUTROPHILS % (AUTO) 84.8 % (40.0-70.0); PLATELET COUNT (AUTO) 195 K/uL (150-450); RED BLOOD CELL COUNT(AUTO) 4.58 MIL/uL (4.50-5.90); RED CELL DISTRIBUTION WIDTH 13.3 % (11.5-14.5)
[2020-11-21 15:27] LABS: ALANINE AMINOTRANSFERASE 94 U/L (12-78); ALBUMIN 2.8 g/dL (3.4-5.0); ALKALINE PHOSPHATASE 50 U/L (46-116); ANION GAP 9 mmol/L (8-16); ASPARTATE AMINOTRANSFERASE 84 U/L (15-37); BILIRUBIN,TOTAL 0.4 mg/dL (0.1-1.0); C-REACTIVE PROTEIN QUANT 1.26 mg/dL (0.00-0.30); CALCIUM, TOTAL 8.4 mg/dL (8.8-10.5); CARBON DIOXIDE 25 mmol/L (22-29); CHLORIDE 107 mmol/L (98-107); CREATININE 1.09 mg/dL (0.60-1.30); FERRITIN 583 ng/mL (26-388); GLOMERULAR FILTR. RATE CALC > 60 mL/min (>60); GLUCOSE,RANDOM 126 mg/dL (70-110); POTASSIUM 3.9 mmol/L (3.5-5.1); SODIUM SERUM 141 mmol/L (136-145); TOTAL PROTEIN, SERUM 6.3 g/dL (6.4-8.2); UREA NITROGEN, BLOOD 23 mg/dL (7-18)
[2020-11-21 16:22] VITALS: BP 122/71
[2020-11-21] MEDS: TAMSULOSIN HCL 0.4 MG CAPSULE PO SCH (20:36)
[2020-11-21] MEDS: ATORVASTATIN CALCIUM 40 MG TABLET PO SCH (20:37)
[2020-11-21] MEDS: FINASTERIDE 5 MG TABLET PO SCH (20:37)
[2020-11-21] MEDS: BENZONATATE 100 MG CAPSULE PO SCH (20:37)
[2020-11-21 20:50] VITALS: BP 134/70
[2020-11-22] MEDS: LEVOTHYROXINE SODIUM 50 MCG TABLET PO SCH (08:44)
[2020-11-22] MEDS: MONTELUKAST SODIUM 10 MG TABLET PO SCH (08:45)
[2020-11-22] MEDS: PANTOPRAZOLE SODIUM 40 MG DR TABLET PO SCH (08:45)
[2020-11-22] MEDS: ASPIRIN 81 MG DR TABLET PO SCH (08:45)
[2020-11-22] MEDS: BENZONATATE 100 MG CAPSULE PO SCH ×3 (08:45→20:08)
[2020-11-22] MEDS: FLUTICASONE/VILANTEROL 200-25 MCG/INH INHALER [14] IH SCH (08:45)
[2020-11-22] MEDS: CHOLECALCIFEROL (VIT D3) 2,000 UNITS [50 MCG] TABLET PO SCH (08:45)
[2020-11-22] MEDS: DEXAMETHASONE SOD PHOS 4 MG/ML VIAL IVP SCH (08:45)
[2020-11-22] MEDS: ENOXAPARIN SODIUM 60 MG/0.6 ML PF SYRINGE SQ SCH ×2 (08:46→20:09)
[2020-11-22 09:33] VITALS: BP 118/54
[2020-11-22] MEDS: REMDESIVIR 100 MG in SODIUM CHLORIDE 0.9% 250 ML IV SCH (11:30)
[2020-11-22] MEDS ORDERED: BENZ-70 PO (11:59)
[2020-11-22] MEDS ORDERED: PROMETHAZINE PO (11:59)
[2020-11-22] MEDS ORDERED: CODEINE PO (11:59)
[2020-11-22] MEDS ORDERED: CHOL200016 PO (11:59)
[2020-11-22] MEDS ORDERED: PHENYLEPHRINE PO (11:59)
[2020-11-22 16:02] LABS: ALANINE AMINOTRANSFERASE 129 U/L (12-78); ALBUMIN 2.8 g/dL (3.4-5.0); ALKALINE PHOSPHATASE 57 U/L (46-116); ANION GAP 11 mmol/L (8-16); ASPARTATE AMINOTRANSFERASE 82 U/L (15-37); BILIRUBIN,TOTAL 0.4 mg/dL (0.1-1.0); CALCIUM, TOTAL 8.4 mg/dL (8.8-10.5); CARBON DIOXIDE 23 mmol/L (22-29); CHLORIDE 105 mmol/L (98-107); CREATININE 0.93 mg/dL (0.60-1.30); GLOMERULAR FILTR. RATE CALC > 60 mL/min (>60); GLUCOSE,RANDOM 116 mg/dL (70-110); POTASSIUM 4.1 mmol/L (3.5-5.1); SODIUM SERUM 139 mmol/L (136-145); TOTAL PROTEIN, SERUM 6.2 g/dL (6.4-8.2); UREA NITROGEN, BLOOD 23 mg/dL (7-18)
[2020-11-22] MEDS: TAMSULOSIN HCL 0.4 MG CAPSULE PO SCH (20:08)
[2020-11-22] MEDS: ATORVASTATIN CALCIUM 40 MG TABLET PO SCH (20:08)
[2020-11-22] MEDS: FINASTERIDE 5 MG TABLET PO SCH (20:09)
[2020-11-22 20:19] VITALS: BP 102/71
[2020-11-23] MEDS: LEVOTHYROXINE SODIUM 50 MCG TABLET PO SCH (06:30)
[2020-11-23] MEDS: DEXAMETHASONE SOD PHOS 4 MG/ML VIAL IVP SCH ×2 (09:00→12:55)
[2020-11-23] MEDS: FLUTICASONE/VILANTEROL 200-25 MCG/INH INHALER [14] IH SCH (09:19)
[2020-11-23] MEDS: CHOLECALCIFEROL (VIT D3) 2,000 UNITS [50 MCG] TABLET PO SCH (09:20)
[2020-11-23] MEDS: BENZONATATE 100 MG CAPSULE PO SCH ×3 (09:20→19:46)
[2020-11-23] MEDS: PANTOPRAZOLE SODIUM 40 MG DR TABLET PO SCH (09:20)
[2020-11-23] MEDS: ASPIRIN 81 MG DR TABLET PO SCH (09:20)
[2020-11-23] MEDS: MONTELUKAST SODIUM 10 MG TABLET PO SCH (09:20)
[2020-11-23] MEDS: ENOXAPARIN SODIUM 60 MG/0.6 ML PF SYRINGE SQ SCH ×2 (09:21→19:46)
[2020-11-23 09:22] VITALS: BP 133/68
[2020-11-23 12:21] VITALS: BP 121/70
[2020-11-23] MEDS ORDERED: DEXAMETHASONE 4 MG TABLET PO SCH (12:30)
[2020-11-23 16:30] VITALS: BP 137/78
[2020-11-23] MEDS: FINASTERIDE 5 MG TABLET PO SCH (19:46)
[2020-11-23] MEDS: ATORVASTATIN CALCIUM 40 MG TABLET PO SCH (19:46)
[2020-11-23] MEDS: TAMSULOSIN HCL 0.4 MG CAPSULE PO SCH (19:46)
[2020-11-23 19:54] VITALS: BP 130/63
[2020-11-24] MEDS: LEVOTHYROXINE SODIUM 50 MCG TABLET PO SCH (06:30)
[2020-11-24 07:23] VITALS: BP_SYST 119; BP_SYST 127; BP_DIAS 68; BP_DIAS 74
[2020-11-24] MEDS: BENZONATATE 100 MG CAPSULE PO SCH ×2 (07:58→16:29)
[2020-11-24] MEDS: MONTELUKAST SODIUM 10 MG TABLET PO SCH (07:58)
[2020-11-24] MEDS: PANTOPRAZOLE SODIUM 40 MG DR TABLET PO SCH (07:58)
[2020-11-24] MEDS: CHOLECALCIFEROL (VIT D3) 2,000 UNITS [50 MCG] TABLET PO SCH (07:58)
[2020-11-24] MEDS: ASPIRIN 81 MG DR TABLET PO SCH (07:58)
[2020-11-24] MEDS: DEXAMETHASONE SOD PHOS 4 MG/ML VIAL IVP SCH (07:59)
[2020-11-24] MEDS: ENOXAPARIN SODIUM 60 MG/0.6 ML PF SYRINGE SQ SCH (08:00)
[2020-11-24] MEDS: FLUTICASONE/VILANTEROL 200-25 MCG/INH INHALER [14] IH SCH (08:10)
[2020-11-24 12:20] VITALS: BP 124/67
== END 2020-11-24 16:45 | disposition home or self-care (01) | DRG 177 ==
LOC: EMS 08:01 → 5N 12:32
PROVIDERS: ADMIT Internal Medicine Geriatric Medicine; ATTEND Internal Medicine Geriatric Medicine
PROC: XW033E5 Introduction of Remdesivir Anti-infective into Peripheral Vein, Percutaneous Approach, New Technology Group 5 (ICD-10-PCS; principal; 2020-11-18)
PROC: XW033H5 Introduction of Tocilizumab into Peripheral Vein, Percutaneous Approach, New Technology Group 5 (ICD-10-PCS; 2020-11-18)
DX: U07.1 COVID-19 (principal); J12.82 Pneumonia due to coronavirus disease 2019; D68.59 Other primary thrombophilia; E87.1 Hypo-osmolality and hyponatremia; J44.0 Chronic obstructive pulmonary disease with (acute) lower respiratory infection; E46 Unspecified protein-calorie malnutrition; D72.810 Lymphocytopenia; E03.9 Hypothyroidism, unspecified; E11.9 Type 2 diabetes mellitus without complications; E66.9 Obesity, unspecified; N40.0 Benign prostatic hyperplasia without lower urinary tract symptoms; R09.02 Hypoxemia; F17.210 Nicotine dependence, cigarettes, uncomplicated; R79.82 Elevated C-reactive protein (CRP); E78.5 Hyperlipidemia, unspecified; E88.09 Other disorders of plasma-protein metabolism, not elsewhere classified; D69.6 Thrombocytopenia, unspecified; Z68.29 Body mass index [BMI] 29.0-29.9, adult; Z79.84 Long term (current) use of oral hypoglycemic drugs; Z86.73 Personal history of transient ischemic attack (TIA), and cerebral infarction without residual deficits; Z91.19 Patient's noncompliance with other medical treatment and regimen
CPT/HCPCS: 71045; 80053; 82550; 82728; 83605; 83735; 83880; 84100; 84145; 84484; 85025; 85379; 85610; 85730; 86140; 93005; 93306; 99285; A9575; J1100; J1650; J7050; 36415-L1; 36415-TC; U0003

== ENCOUNTER → 2022-01-03 | Outpatient (CLI) | payer MEDICARE ==
[~2022-01-03] MED LIST changes: +BENZ-70 PO; +CHOL200059 PO; +CODEINE PO; -LEVO25TA9 PO; +PHENYLEPHRINE PO; +PROMETHAZINE PO
== END | disposition home or self-care (01) ==
LOC: RADMN 09:42
PROVIDERS: ATTEND Internal Medicine Geriatric Medicine
DX: R26.89 Other abnormalities of gait and mobility (principal)
CPT/HCPCS: 70450